=== PATIENT | male | born 1955 | race Caucasian/White ===

== ENCOUNTER → 2021-08-06 09:53 | Outpatient (CLI) | payer MEDICARE, SELFPAY ==
--- NOTE | ~2021-08-06 | US_ITS ---
EXAMINATION: US soft tissue head and neck DATE: 08/06/2021 10:13 INDICATION: Localized swelling, mass and lump, neck. TECHNIQUE: Multiple grayscale and Doppler ultrasound images of the neck were obtained. COMPARISON: None FINDINGS: There are normal lymph nodes in the neck bilaterally. IMPRESSION: 1. No abnormal neck mass or lymphadenopathy. Reviewed, dictated and finalized at location B.
== END ==
PROVIDERS: PCP Family Medicine; Visit Provider Family Medicine
DX: R22.1 Localized swelling, mass and lump, neck (principal); Z80.7 Family history of other malignant neoplasms of lymphoid, hematopoietic and related tissues
CPT/HCPCS: 76536

== ENCOUNTER 2024-02-02 10:11 | Outpatient (CLI) | payer MEDICARE, SELFPAY ==
--- NOTE | ~2024-02-02 | XR_ITS ---
3 VIEWS LUMBAR SPINE Ordering provider: Nito Mistry MD History: . M54.30 - Sciatica, unspecified side . Comparison: None. FINDINGS: VERTEBRAL BODIES: No visible fracture or subluxation. DISK SPACES: Severe narrowing of the disc L4-L5 and L5-S1. Multilevel facet joint disease. SOFT TISSUES: Atherosclerotic changes of the aorta. IMPRESSION: No acute osseous abnormality lumbar spine. Multilevel degenerative disc disease. Reviewed, dictated and finalized at location A. DESIGNER
== END 2024-02-02 10:12 | disposition home or self-care (01) ==
LOC: MICIMG 10:12
PROVIDERS: PCP Family Medicine; Visit Provider Family Medicine
DX: M51.369 Other intervertebral disc degeneration, lumbar region without mention of lumbar back pain or lower extremity pain (principal); M51.370 Other intervertebral disc degeneration, lumbosacral region with discogenic back pain only
CPT/HCPCS: 72110

== ENCOUNTER 2024-03-10 12:30 | Outpatient (RCR) | payer MEDICARE, SELFPAY ==
--- NOTE | 2024-02-26 16:04 | PTOPEVAL1 ---
Assessment and note entered by Lizette Dunbar, PT, DPT Evaluation Information Assessment Status Evaluation Diagnosis sciatic pain Subjective Information Pt reports a chronic history of piriformis/sciatic pain. He states he was tried to be really proactive when he felt the pain starting this time . He states he has been being treated with emergency care attendant as well. States the pain does not limit him but it is really uncomfortable. In the last couple of weeks has had some shooting pain across his low back. He is getting better from the worst part but is still having pain. He likes to life weights and ride his bike but has not for the last month d/t pain. Reports BLE numbness. Reported Pain Level Pain Score 1: Self Report Assessment PT Clinical Summary Pt presents to therapy today for his initial evaluation. He demonstrates decreased lumbar mobility and has reports of liz foot numbness consistent with L5 and S1 nerve involvement. He has a negative slump test bilaterally. In standing he demonstrates a slight anterior. Skilled therapy services are indicated to improve lumbar mobility and to decrease pain reports. Plan of Care Interventions Electrical Stimulation,Gait Training,Manual Therapy,Neuro Re-education,Patient/Caregiver Education,Therapeutic Activities,Therapeutic Exercise PT Services Indicated Yes Treatment Frequency and follow up if pain does not improve Duration These treatments will address the objective and functional deficits as defined above. The patient will be advanced safely and appropriately in order for the patient to progress towards his/her prior level of function. Additional exercises will be introduced and as well as a comprehensive home exercise program upon discharge, if needed, ?to ensure carryover of functional gains achieved in the clinic. This treatment plan has been reviewed and agreement upon by the patient.
== END 2024-05-26 23:59 | disposition home or self-care (01) ==
LOC: ANHGOSHPT 12:30
PROVIDERS: PCP Family Medicine; Visit Provider Family Medicine
DX: M54.30 Sciatica, unspecified side (principal); M51.369 Other intervertebral disc degeneration, lumbar region without mention of lumbar back pain or lower extremity pain
CPT/HCPCS: 97110; 97161; 97530

== ENCOUNTER 2024-06-03 12:30 | Outpatient (RCR) | payer MEDICARE, SELFPAY ==
--- NOTE | 2024-06-03 14:33 | PTOPPROG ---
Assessment and note entered by Lizette Dunbar, PT, DPT Evaluation Information Assessment Status Progress Diagnosis sciatic pain Subjective Information Pt was initially evaluated on 02/26/24 and did his HEP on his own. About 3 weeks he was put on prednisone for an infection and his back pain completely went away. After coming off the medication he states his pain was out of control. States he did 1 hour of walking, 45 mins of exercise, and 2+ hours of yard work. He states it is hard for him to stand up straight. Assessment PT Clinical Summary Pt presents to therapy today for his progress report and 2 month long participation in his HEP. He reports improvement in some symptoms with worsening of others. His pain seems to be mechanical in nature, with proper lifting mechanics he has little to know pain. His HEP was progressed again. Skilled therapy services are indicated to improve lumbar mobility and to decrease pain reports. Pt plans to continue with HEP for a month and will follow up if needed Plan of Care Interventions Electrical Stimulation,Gait Training,Manual Therapy,Neuro Re-education,Patient/Caregiver Education,Therapeutic Activities,Therapeutic Exercise PT Services Indicated Yes Treatment Frequency and follow up if pain does not improve Duration These treatments will address the objective and functional deficits as defined above. The patient will be advanced safely and appropriately in order for the patient to progress towards his/her prior level of function. Additional exercises will be introduced and as well as a comprehensive home exercise program upon discharge, if needed, ?to ensure carryover of functional gains achieved in the clinic. This treatment plan has been reviewed and agreement upon by the patient.
--- NOTE | 2024-11-05 13:43 | PTOPDC ---
Assessment and note entered by J Luis Bender, PT Evaluation Information Assessment Status Discharge - Pt Not Present Diagnosis sciatic pain Subjective Information Pt was initially evaluated on 02/26/24 and did his HEP on his own. About 3 weeks he was put on prednisone for an infection and his back pain completely went away. After coming off the medication he states his pain was out of control. States he did 1 hour of walking, 45 mins of exercise, and 2+ hours of yard work. He states it is hard for him to stand up straight. Assessment PT Clinical Summary Patient last present for therapy 06/03/24. Patient has note returned since. Will be formally discharged at this time. Plan of Care PT Services Indicated Yes
== END 2024-09-01 23:59 | disposition home or self-care (01) ==
LOC: ANHGOSHPT 12:30
PROVIDERS: PCP Family Medicine; Visit Provider Family Medicine
DX: M54.30 Sciatica, unspecified side (principal); M51.369 Other intervertebral disc degeneration, lumbar region without mention of lumbar back pain or lower extremity pain
CPT/HCPCS: 97110; 97530

== ENCOUNTER 2024-07-21 10:09 | Outpatient (CLI) | payer MEDICARE, SELFPAY ==
--- NOTE | ~2024-07-21 | MR_ITS ---
MRI of the lumbar spine Clinical History: Degenerative disc disease Technique: Axial T2-weighted images, and sagittal T1-weighted, T2-weighted, and T2 fat-sat images wer e acquired. Findings: There is no fracture or subluxation of the lumbar spine. Vertebral bodies maintain normal h eight and alignment. There are Modic type I signal changes about the L4-L5 disc space due to degenera tive disc disease. At L1-L2, there is no disc bulge or herniation. There is mild facet arthropathy. No central canal sandra nosis or neural foraminal narrowing. At L2-L3, there is degenerative disc narrowing. There is disc bulge and moderate facet arthropathy. T here is moderate spinal canal stenosis/thecal sac compression. There is mild right neural foraminal n arrowing. Left neural foramen preserved. At L3-L4, there is diffuse disc bulge with moderate facet arthropathy. There is severe spinal canal s tenosis/thecal sac compression. There is moderate left neural foraminal narrowing, and mild right columba ral foraminal narrowing. At L4-L5, there is severe degenerative disc narrowing. There is disc bulge, especially at the right p aracentral to right foraminal region with mild facet arthropathy. No central canal stenosis. There is moderate to advanced bilateral neural foraminal narrowing. At L5-S1, there is mild disc bulge and mild to moderate facet arthropathy. No central canal stenosis. Neural foramina are preserved. Paravertebral soft tissues are unremarkable. Impression: Severe degenerative spondylosis at L3-L4 and L2-L3. Moderate degenerative spondylosis at L4-L5. Reviewed, dictated and finalized at [facility]. Impression: Severe degenerative spondylosis at L3-L4 and L2-L3. Moderate degenerative spondylosis at L4-L5.
== END 2024-07-21 10:10 | disposition home or self-care (01) ==
LOC: MICIMG 10:10
PROVIDERS: PCP Family Medicine; Visit Provider Nurse Practitioner Family
DX: M51.369 Other intervertebral disc degeneration, lumbar region without mention of lumbar back pain or lower extremity pain (principal); M47.896 Other spondylosis, lumbar region
CPT/HCPCS: 72148

== ENCOUNTER 2024-08-03 15:02 | Outpatient (CLI) | payer MEDICARE, SELFPAY ==
--- NOTE | ~2024-08-03 | XR_ITS ---
XR sacroiliac joints min 3V Ordering provider: Coleen Aj MD History: . sacroilitis x 6-8 mos w/o injury . Comparison: None. FINDINGS: BONES: No acute fracture or dislocation. Degenerative changes of the lower lumbar spine. Mild bilateral hip osteoarthritic changes. JOINTS: The bilateral sacroiliac joint spaces appear well maintained. No bony fusion of the sacroilia c joints or bony erosions. SOFT TISSUES: Unremarkable. IMPRESSION: NO ACUTE OSSEOUS ABNORMALITY. NORMAL SACROILIAC JOINTS. Reviewed, dictated and finalized at location A.
== END 2024-08-03 15:03 | disposition home or self-care (01) ==
PROVIDERS: PCP Family Medicine; Visit Provider Physical Medicine & Rehabilitation Pain Medicine
DX: M46.1 Sacroiliitis, not elsewhere classified (principal)
CPT/HCPCS: 72202

== ENCOUNTER 2024-10-21 11:06 | Outpatient (CLI) | payer MEDICARE, SELFPAY ==
--- OUTSIDE RECORDS SUMMARY | 2024-10-21 11:09 | XMS_ITS | Clinical Summary ---
Author Organization [facility] Address [address] [place] [address] Care Team Providers Care Roll Shop Supervisor Name Role Phone Marilynn Yoo MD Primary Care Provider Vivianaa ble Source Comments [facility],non-owned Affiliates and Associated Physician Practices is amultiple site organization consisting of ambulatory clinics and hospital sitesin [place], [place], [place] and [place]. This disclosure is being madepursuant to the Care Everywhere program and may not contain all information available regarding this patient. Last updated 17.[employer] [facility] Medications * Be aware that medications may not be up to date on this document. Alwaysverify current medications with the patient. albuterol HFA (PROVENTIL;VENT DIOMEDES;PROAIR) 108 (90 Base) MCG/ACT inhaler Inhale 2 puffs by mouth every 6 hours as needed 08/20/2012 Active VENTOLIN HFA 108 (90 Base) MCG/ACT inhaler INL 2 PFS PO Q 6 H PRF SOB OR WHEEZING 01/11/2019 Active amLODIPine (NORVASC) 10 MG tablet TAKE 1 TABLET BY MOUTH ONCE DAILY 10/13/2018 Active amLODIPine (NORVASC) 5 MG tablet Take 5 mg by mouth once daily 03/04/2019 Active amLODIPine (NORVASC) 5 MG tablet 02/23/2019 Active dexamethasone sodium phosphate (DECADRON) 0.1 % ophthalmic solution INSTILL 1 DROP IN LEFT EYE TID STARTING AFTER SURGERY. UNTIL BOTTLE IS EMPTY 08/05/2018 Active ketoconazole (NIZORAL) 2 % cream APPLY BID TO FEET AND ANKLES FOR 1 MONTH 09/16/2018 Active pantoprazole EC (PROTONIX) 40 MG tablet 03/18/2019 Active Social History Tobacco Use Types Packs/Day Years Used Date Smoking Tobacco: Never Assessed Sex and Gender Information Value Date Recorded Sex Assigned at Not on file Legal Sex Male 4:48 AM INTERNATIONAL COORDINATOR Gender Identity Not on file Sexual Orientation Not on file Last Filed Vital Signs Vital Sign Reading Time Taken Comments Blood Pressure - - Pulse - - Temperature - - Respiratory Rate - - Oxygen Saturation - - Inhaled Oxygen Concentration - - Weight 78.9 kg (174 lb) 04/29/2019 11:03 AM INTERNATIONAL COORDINATOR Height 177.8 cm (5' 10) 04/29/2019 11:03 AM INTERNATIONAL COORDINATOR Body Mass Index 24.97 04/29/2019 11:03 AM INTERNATIONAL COORDINATOR Plan of Treatment Health Maintenance Due Date Last Done Comments COLOGUARD (AGES 45-75) - COL ON CA SCREENING 1953 COLON MONITORING 1953 COLONOSCOPY - COLON CA SCREENING 1953 CT COLONOGRAPHY - COLON CA SCREENING 1955 Colorectal Cancer Screening 1953 FIT - COLON CA SCREENING 1953 FLEX SIG - COLON CA SCREENING 1953 HEPATITIS C SCREENING 03/15/1971 DTAP/TDAP/TD VACCINES (1 - Tdap) 1972 PNEUMOCOCCAL VACCINE 50+ (1 of 1 - PCV) 2003 ZOSTER VACCINE (1 of 2) 2003 COVID-19 VACCINE ( - 2023-2 5 season) 2023 DEPRESSION SCREENING 02/25/2024 LIPID TESTING 04/20/2024 04/20/2019 INFLUENZA VACCINE (#1) 2024 9, 01/05/2018, 03/30/1999 Respiratory Syncytial Virus (RSV) Vaccine Pt: or over 60 yrs (1 - 1-dose 75+ series) 2028 HEPATITIS B VACCINE Aged Out No longe r eligible based on patient's age to complete this topic HIB VACCINE Aged Out No longer eligi ble based on patient's age to complete this topic HPV VACCINE Aged Out No longer eligi ble based on patient's age to complete this topic MENINGOCOCCAL (Group B) VACCINE SHARED DECISION-MAKING Aged Out No longer eligible based on patient's age to complete this topic MENINGOCOCCAL GROUPS A/C/Y/W VACCINE Aged Out No longer eligible b ased on patient's age to complete this topic Insurance HUMAN Care Teams Roll Shop Supervisor Relationship Specialty Start Date End Date Marilynn Yoo MD PCP - General Internal Medicine 04/29/19
--- OUTSIDE RECORDS SUMMARY | 2024-10-21 11:09 | XMS_ITS | Encounter Summary ---
Author Organization [employer] Address [address] [place] [address] Care Team Providers Care Product Ambassador Name Role Phone Mey Ivey MD Primary Care Provider [phone] Encounter Details Date Type Department Care Team (Latest Contact Info) Description 07/12/2008 Outpatient Historical [facility], [address] Mey Ivey MD [address] [place] [address] Carbuncle and Furuncle of Face Social History Tobacco Use Types Packs/Day Years Used Date Smoking Tobacco: Never Assessed Sex and Gender Information Value Date Recorded Sex Assigned at Not on file Legal Sex Male 4:55 AM JAZZ MUSICIAN Gender Identity Not on file Sexual Orientation Not on file documented as of this encounter Plan of Treatment Not on file documented as of this encounter Visit Diagnoses Diagnosis Carbuncle and furuncle of face documented in this encounter Care Teams Product Ambassador Relationship Specialty Start Date End Date Mey Ivey MD [address] [place] [address] PCP - General Internal Medicine 08/13/16 12/09/21 documented as of this encounter
--- OUTSIDE RECORDS SUMMARY | 2024-10-21 11:10 | XMS_ITS | Encounter Summary ---
Author Organization [facility] Address [address] [place] [address] Care Team Providers Care Dental Surgeon Name Role Phone Mey Ivey MD Primary Care Provider [phone] Encounter Details Date Type Department Care Team (Late st Contact Info) Description 04/03/[address] [facility] Primary Care - [address] [place] [address] Clarence Baptiste MD NO ADDRESS ON FILE Social History Tobacco Use Types Packs/Day Years Used Date Smoking Tobacco: Never Assessed Sex and Gender Information Value Date Recorded Sex Assigned at Not on file Legal Sex Male 4:55 AM TELEPHONE COIN BOX COLLECTOR Gender Identity Not on file Sexual Orientation Not on file documented as of this encounter Plan of Treatment Not on file documented as of this encounter Visit Diagnoses Not on filedocumented in this encounter Care Teams Dental Surgeon Relationship Specialty Start Date End Date Mey Ivey MD [address] [facility] [address] [place] [address] PCP - General Internal Medicine 08/13/16 12/09/21 documented as of this encounter
--- OUTSIDE RECORDS SUMMARY | 2024-10-21 11:10 | XMS_ITS | Encounter Summary ---
Author Organization [facility] Address [address] [place] [address] Care Team Providers Care Plant Assigner Name Role Phone Mey Ivey MD Primary Care Provider [phone] Encounter Details Date Type Department Care Team (Late st Contact Info) Description 11/08/2005 Outpatient Historical [facility] Primary Care - [facility] [address] [place] [address] [address] [place] [address] Taqueria Tripp MD [address] [facility] [address] [place] [address] Social History Tobacco Use Types Packs/Day Years Used Date Smoking Tobacco: Never Assessed Sex and Gender Information Value Date Recorded Sex Assigned at Not on file Legal Sex Male 4:55 AM CHAIN PULLER Gender Identity Not on file Sexual Orientation Not on file documented as of this encounter Plan of Treatment Not on file documented as of this encounter Visit Diagnoses Not on filedocumented in this encounter Care Teams Plant Assigner Relationship Specialty Start Date End Date Mey Ivey MD [address] [facility] [address] [place] [address] PCP - General Internal Medicine 08/13/16 12/09/21 documented as of this encounter
--- OUTSIDE RECORDS SUMMARY | 2024-10-21 11:10 | XMS_ITS | Encounter Summary ---
Author Organization [facility] Address [address] [place] [address] Care Team Providers Care Gas Engine Performance Engineer Name Role Phone Mey Ivey MD Primary Care Provider [phone] Encounter Details Date Type Department Care Team (Late st Contact Info) Description 12/24/2002 Outpatient Historical [facility] Primary Care - [facility] [address] [place] [address] [address] [place] [address] Taqueria Tripp MD [address] [facility] [address] [place] [address] Social History Tobacco Use Types Packs/Day Years Used Date Smoking Tobacco: Never Assessed Sex and Gender Information Value Date Recorded Sex Assigned at Not on file Legal Sex Male 4:55 AM MONOTYPE OPERATOR Gender Identity Not on file Sexual Orientation Not on file documented as of this encounter Plan of Treatment Not on file documented as of this encounter Visit Diagnoses Not on filedocumented in this encounter Care Teams Gas Engine Performance Engineer Relationship Specialty Start Date End Date Mey Ivey MD [address] [facility] [address] [place] [address] PCP - General Internal Medicine 08/13/16 12/09/21 documented as of this encounter
--- OUTSIDE RECORDS SUMMARY | 2024-10-21 11:10 | XMS_ITS | Encounter Summary ---
Author Organization [employer] Address [address] [place] [address] Care Team Providers Care Field Human Resources Manager Name Role Phone Mey Ivey MD Primary Care Provider [phone] Encounter Details Date Type Department Care Team (Latest Contact Info) Description 02/16/2003 Outpatient Historical [facility] Taqueria Tripp MD [address] [facility] [address] [place] [address] PALPITATIONS (Primary Dx) Social History Tobacco Use Types Packs/Day Years Used Date Smoking Tobacco: Never Assessed Sex and Gender Information Value Date Recorded Sex Assigned at Not on file Legal Sex Male 4:55 AM INDUSTRIAL ECONOMICS PROFESSOR Gender Identity Not on file Sexual Orientation Not on file documented as of this encounter Plan of Treatment Not on file documented as of this encounter Visit Diagnoses Diagnosis Palpitations- Primary documented in this encounter Care Teams Field Human Resources Manager Relationship Specialty Start Date End Date Mey Ivey MD [address] [facility] [address] [place] [address] PCP - General Internal Medicine 08/13/16 12/09/21 documented as of this encounter
--- OUTSIDE RECORDS SUMMARY | 2024-10-21 11:10 | XMS_ITS | Encounter Summary ---
Author Organization [employer] Address [address] [place] [address] Care Team Providers Care Insurance Sales Assistant Name Role Phone Mey Ivey MD Primary Care Provider [phone] Encounter Details Date Type Department Care Team (Late st Contact Info) Description 04/06/1999 Outpatient Historical [facility] Tank Lizama MD [address] [place] [address] [place] [id number] Stricture and stenosis of esophagus (Primary Dx) Social History Tobacco Use Types Packs/Day Years Used Date Smoking Tobacco: Never Assessed Sex and Gender Information Value Date Recorded Sex Assigned at Not on file Legal Sex Male 4:55 AM MEDIA JOB TITLES Gender Identity Not on file Sexual Orientation Not on file documented as of this encounter Plan of Treatment Not on file documented as of this encounter Visit Diagnoses Diagnosis Stricture and stenosis of esophagus- Primary documented in this encounter Care Teams Insurance Sales Assistant Relationship Specialty Start Date End Date Mey Ivey MD [address] [facility] [address] [place] [address] PCP - General Internal Medicine 08/13/16 12/09/21 documented as of this encounter
--- OUTSIDE RECORDS SUMMARY | 2024-10-21 11:10 | XMS_ITS | Encounter Summary ---
Author Organization [facility] Address [address] [place] [address] Care Team Providers Care Electrical And Radio Mock Up Mechanic Name Role Phone Mey Ivey MD Primary Care Provider [phone] Encounter Details Date Type Department Care Team (Late st Contact Info) Description 03/30/1999 Outpatient Historical [facility] Primary Care - [address] [place] [address] Clarence Baptiste MD NO ADDRESS ON FILE Social History Tobacco Use Types Packs/Day Years Used Date Smoking Tobacco: Never Assessed Sex and Gender Information Value Date Recorded Sex Assigned at Not on file Legal Sex Male 4:55 AM COMMISSARY AGENT Gender Identity Not on file Sexual Orientation Not on file documented as of this encounter Plan of Treatment Not on file documented as of this encounter Visit Diagnoses Not on filedocumented in this encounter Care Teams Electrical And Radio Mock Up Mechanic Relationship Specialty Start Date End Date Mey Ivey MD [address] [facility] [address] [place] [address] PCP - General Internal Medicine 08/13/16 12/09/21 documented as of this encounter
--- OUTSIDE RECORDS SUMMARY | 2024-10-21 11:10 | XMS_ITS | Encounter Summary ---
Author Organization [facility] Address [address] [place] [address] Care Team Providers Care Hyperbaric Tech Name Role Phone Mey Ivey MD Primary Care Provider [phone] Encounter Details Date Type Department Care Team (Late st Contact Info) Description 01/28/2006 Outpatient Historical [facility] Primary Care - [facility] [address] [place] [address] [address] [place] [address] Taqueria Tripp MD [address] [facility] [address] [place] [address] Social History Tobacco Use Types Packs/Day Years Used Date Smoking Tobacco: Never Assessed Sex and Gender Information Value Date Recorded Sex Assigned at Not on file Legal Sex Male 4:55 AM SUPERVISOR TELLERS Gender Identity Not on file Sexual Orientation Not on file documented as of this encounter Plan of Treatment Not on file documented as of this encounter Visit Diagnoses Not on filedocumented in this encounter Care Teams Hyperbaric Tech Relationship Specialty Start Date End Date Mey Ivey MD [address] [facility] [address] [place] [address] PCP - General Internal Medicine 08/13/16 12/09/21 documented as of this encounter
--- OUTSIDE RECORDS SUMMARY | 2024-10-21 11:10 | XMS_ITS | Encounter Summary ---
Author Organization [facility] Address [address] [place] [address] Care Team Providers Care Parts Inspector Name Role Phone Mey Ivey MD Primary Care Provider [phone] Encounter Details Date Type Department Care Team (Late st Contact Info) Description 01/28/[address] [facility] Primary Care - [facility] [address] [place] [address] [address] [place] [address] Taqueria Tripp MD [address] [facility] [address] [place] [address] Social History Tobacco Use Types Packs/Day Years Used Date Smoking Tobacco: Never Assessed Sex and Gender Information Value Date Recorded Sex Assigned at Not on file Legal Sex Male 4:55 AM CORRECTIONAL TREATMENT SPECIALIST Gender Identity Not on file Sexual Orientation Not on file documented as of this encounter Plan of Treatment Not on file documented as of this encounter Visit Diagnoses Not on filedocumented in this encounter Care Teams Parts Inspector Relationship Specialty Start Date End Date Mey Ivey MD [address] [place] [address] PCP - General Internal Medicine 08/13/16 12/09/21 documented as of this encounter
--- OUTSIDE RECORDS SUMMARY | 2024-10-21 11:10 | XMS_ITS | Encounter Summary ---
Author Organization [facility] Address [address] [place] [address] Care Team Providers Care Security Operations Manager Name Role Phone Mey Ivey MD Primary Care Provider [phone] Encounter Details Date Type Department Care Team (Late st Contact Info) Description 03/22/2003 Outpatient Historical [facility] Primary Care - [facility] [address] [place] [address] [address] [place] [address] Taqueria Tripp MD [address] [facility] [address] [place] [address] Social History Tobacco Use Types Packs/Day Years Used Date Smoking Tobacco: Never Assessed Sex and Gender Information Value Date Recorded Sex Assigned at Not on file Legal Sex Male 4:55 AM MIMEOGRAPHER Gender Identity Not on file Sexual Orientation Not on file documented as of this encounter Plan of Treatment Not on file documented as of this encounter Visit Diagnoses Not on filedocumented in this encounter Care Teams Security Operations Manager Relationship Specialty Start Date End Date Mey Ivey MD [address] [facility] [address] [place] [address] PCP - General Internal Medicine 08/13/16 12/09/21 documented as of this encounter
--- OUTSIDE RECORDS SUMMARY | 2024-10-21 11:10 | XMS_ITS | Encounter Summary ---
Author Organization [facility] Address [address] [place] [address] Care Team Providers Care Bending Frame Operator Name Role Phone Mey Ivey MD Primary Care Provider [phone] Encounter Details Date Type Department Care Team (Late st Contact Info) Description 03/26/2007 Orders Only [facility] Primary Care - [address] [place] [address] Mey Ivey MD [address] [facility] [address] [place] [address] Social History Tobacco Use Types Packs/Day Years Used Date Smoking Tobacco: Never Assessed Sex and Gender Information Value Date Recorded Sex Assigned at Not on file 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 MEDICATIONS: Medication list current. CHIEF COMPLAINT Patient complains of dizziness, sinus congestion. HISTORY: HISTORY: HISTORY OF PRESENT ILLNESS: UPPER RESPIRATORY: The upper respiratory symptoms began approximately 6 days ago. Symptoms include dizziness/lightheadedness, symptoms include sinus congestion. ROS: GENERAL: No chills, no fever, see HISTORY OF PRESENT ILLNESS. PHYSICAL EXAMINATION: EARS, NOSE, MOUTH AND THROAT: EARS: Tympanic membranes shiny without retraction. Canals unremarkable. Hearing grossly normal. NOSE (AND SINUS): TURBINATES SWOLLEN BILATERALLY, MAXILLARY SINUSES ARE TENDER BILATERALLY. ORAL: OROPHARYNX ERYTHEMATOUS. RESPIRATORY: Clear to auscultation and percussion. Normal respiratory effort. CARDIOVASCULAR: CARDIAC: Regular rhythm. No murmurs, rubs, or gallops. ASSESSMENT/PLAN: 386.11-BENIGN POSITIONAL VERTIGO MEDICATIONS: MECLIZINE HCL ORAL CAPSULE CONVENTIONAL 25 MG, 1 Four Times A Day, As Needed, 40 Dispensed, status:NEW PRESCRIPTION, 03/26/2007. 461.8-ACUTE SINUSITIS MEDICATIONS: ZITHROMAX Z-PRATIK ORAL TABLET 250 MG, DIRECTED, 1 Dispensed, status: CONTINUED, 03/26/2007. FLONASE NASAL SUSPENSION 50 MCG/ACT, 2 SPRAYS EACH NOSTRIL each day, 1 Dispensed, 11 Fills, status:CONTINUED, 03/26/2007. RETURN VISIT : Instructed to call if not improving. Electronically Signed by: Mey Ivey MD on , March 26, 2007 documented in this encounter Plan of Treatment Not on file documented as of this encounter Visit Diagnoses Not on filedocumented in this encounter Care Teams Bending Frame Operator Relationship Specialty Start Date End Date Mey Ivey MD [address] [facility] [address] [place] [address] PCP - General Internal Medicine 08/13/16 12/09/21 documented as of this encounter
--- OUTSIDE RECORDS SUMMARY | 2024-10-21 11:10 | XMS_ITS | Encounter Summary ---
Author Organization [facility] Address [address] [place] [address] Care Team Providers Care Fish Egg Packer Name Role Phone Mey Ivey MD Primary Care Provider [phone] Encounter Details Date Type Department Care Team (Late st Contact Info) Description 02/10/2003 Outpatient Historical [facility] Primary Care - [facility] [address] [place] [address] [address] [place] [address] Taqueria Tripp MD [address] [facility] [address] [place] [address] Social History Tobacco Use Types Packs/Day Years Used Date Smoking Tobacco: Never Assessed Sex and Gender Information Value Date Recorded Sex Assigned at Not on file 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
--- OUTSIDE RECORDS SUMMARY | 2024-10-21 11:10 | XMS_ITS | Encounter Summary ---
Author Organization [facility] Address [address] [place] [address] Care Team Providers Care Warp Doffer Name Role Phone Mey Ivey MD Primary Care Provider [phone] Encounter Details Date Type Department Care Team (Late st Contact Info) Description 05/16/2007 Outpatient Historical [facility] Primary Care - [address] [place] [address] Taqueria Tripp MD [address] [facility] [address] [place] [address] Routine General Medical Examination at a Health Care Facility Social History Tobacco Use Types Packs/Day Years Used Date Smoking Tobacco: Never Assessed Sex and Gender Information Value Date Recorded Sex Assigned at Not on file 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 Gender Identity Not on file Sexual Orientation Not on file documented as of this encounter Plan of Treatment Pending Results Name Type Priority Associated Diagnoses Date /Time TSH WITH REFLEX FT4 AND FT3 Lab Routine 05/16/2007 8:37 AM CDT documented as of this encounter Procedures Procedure Name Priority Date/Time Associated Diagnosis Comments TSH REFLEXIVE Routine 05/16/2007 8:37 AM CDT URINALYSIS WITH REFLEX CULTURE Routine 05/16/2007 8:37 AM CDT CBC WITH DIFFERENTIAL Routine 05/16/2007 8:37 AM CDT URINALYSIS W/REFLEX MICROSCOPIC Routine 05/16/2007 8:37 AM CDT PSA Routine 05/16/2007 8:37 AM CDT LIPID PANEL Routine 05/16/2007 8:37 AM CDT COMPREHENSIVE METABOLIC PANEL Routine 05/16/2007 8:37 AM CDT documented in this encounter Results * TSH WITH REFLEX FT4 (05/16/2007 8:37 AM CDT) Pathologist [facility] TSH 1.93 0.27 - 4.20 uU/mL [facility] Blood specimen (specimen) 05/16/2007 8:37 AM CDT 05/16/2007 4:59 PM CDT us Taqueria Tripp MD CHEMISTRY ORDERABLES Edited [facility] [address] [facility] [place] [address] * URINALYSIS (05/16/2007 8:37 AM CDT) Pathologist [facility] LEUKOCYTE ESTERASE UA Negative Negative [facility] SPECIFIC GRAVITY UA 1.018 1.001 - 1.035 [facility] GLUCOSE UA Negative Negative [facility] BLOOD UA Negative Negative [facility] COLOR UA Yellow [facility] NITRITE UA Negative Negative [facility] UROBILINOGEN UA <1 <=1 mg/dL [facility] PH UA 5.0 5.0 - 8.0 [facility] KETONES UA Negative Negative [facility] CLARITY UA Clear Clear [facility] BILIRUBIN UA Negative Negative [facility] PROTEIN UA Negative Negative [facility] 05/16/2007 8:37 AM CDT 05/16/2007 4:59 PM CDT Taqueria Tripp MD URINE ORDERABLES Final Result Performing Organization Address [facility]/ZIP Co de Phone Number [facility] [address] [place] [address] * PSA (05/16/2007 8:37 AM CDT) Pathologist [facility] PSA 2.2 0.0 - 4.0 ng/mL [facility] Comment:Performed on Electron Database E170 System Blood specimen (specimen) 05/16/2007 8:37 AM CDT 05/16/2007 4:59 PM CDT Taqueria Tripp MD CHEMISTRY ORDERABLES Edited Performing Organization Address City/[facility]/ZIP Co de Phone Number [facility] [address] [place] [address] * (ABNORMAL) CBC WITH DIFFERENTIAL (05/16/2007 8:37 AM CDT) Pathologist [facility] MCV 93.5 82.0 - 99.0 fL [facility] PLATELETS 272 140 - 350 K/uL [facility] HEMOGLOBIN 14.2 13.6 - 16.5 g/dL [facility] RDW 13.2 11.5 - 14.5 % [facility] WBC 5.3 4.0 - 9.8 K/uL [facility] MCH 30.7 27.2 - 32.6 pg [facility] MPV 10.0 9.3 - 12.4 fL [facility] HEMATOCRIT 43.3 40.0 - 48.0 % [facility] RDW-STDEV 44.4 37.1 - 48.7 fL [facility] RBC 4.63 4.50 - 5.40 M/uL [facility] MCHC 32.8 31.5 - 35.5 % [facility] MONOCYTES 10 3 - 13 % [facility] MONOCYTE ABSOLUTE 0.50 0.10 - 1.30 K/uL [facility] NEUTROPHILS 49 45 - 70 % [facility] NEUTROPHIL ABSOLUTE 2.60 1.90 - 7.00 K/uL [facility] EOSINOPHILS 8(H) 0 - 7 % [facility] EOSINOPHIL ABSOLUTE 0.40 0.00 - 0.70 K/uL [facility] LYMPHOCYTES 33 16 - 45 % [facility] LYMPHOCYTE ABSOLUTE 1.75 0.70 - 4.50 K/uL [facility] BASOPHILS 1 0 - 2 % [facility] BASOPHILS ABSOLUTE 0.03 0.00 - 0.20 K/uL [facility] Blood specimen (specimen) 05/16/2007 8:37 AM CDT 05/16/2007 4:59 PM CDT us Taqueria Tripp MD HEMATOLOGY ORDERABLES Edited INTERFACE SYSTEM Refer to clinic/hospital department [facility] [address] [facility] [address] [place] [address] * URINALYSIS WITH REFLEX CULTURE (05/16/2007 8:37 AM CDT) URINE CULTURE ORDER Not indicated [facility] Comment: Criteria for a reflex culture include one or more of the following: Abnormal nitrite, leukocyte esterase, WBCs or RBCs. Lack of qualifying criteria does not exclude the possiblity of a urinary tract infection. Dilute urine, drug interference, etc. may decrease the sensitivity of the criteria analytes. Urine, clean catch 05/16/2007 8:37 AM CDT 05/16/2007 4:59 PM CDT us Taqueria Tripp MD URINE ORDERABLES Final Result [facility] [address] [place] [address] * COMPREHENSIVE METABOLIC PANEL (05/16/2007 8:37 AM CDT) ALKALINE PHOSPHATASE 55 40 - 129 U/L [facility] BILIRUBIN TOTAL 0.6 0.2 - 1.0 mg/dL [facility] CO2 26 22 - 30 mmol/L [facility] TOTAL PROTEIN 7.4 6.3 - 8.6 g/dL [facility] POTASSIUM 4.6 3.5 - 4.9 mmol/L [facility] GLUCOSE 94 65 - 99 mg/dL [facility] AST 30 12 - 38 U/L [facility] BUN 17 6 - 20 mg/dL [facility] CALCIUM 9.3 8.4 - 10.2 mg/dL [facility] CHLORIDE 103 96 - 108 mmol/L [facility] ALBUMIN 4.3 3.4 - 4.8 g/dL [facility] CREATININE 0.97 0.67 - 1.17 mg/dL [facility] SODIUM 137 135 - 145 mmol/L [facility] ALT 30 0 - 41 U/L [facility] GFR, >60 >=60 mL/min/1.7 sq meter [facility] GFR >60 >=60 mL/min/1.7 sq meter [facility] Comment: Estimated GFR rate interpretative information for both Americans and non- Americans is available on the [facility] Intranet at: [email or web address].[facility] Select: Lab Policies and Procedures Select: Reference Ranges - GFR Blood specimen (specimen) 05/16/2007 8:37 AM CDT 05/16/2007 4:59 PM CDT Result [facility] Taqueria Tripp MD CHEMISTRY ORDERABLES Edited Performing Organization Address City/[facility]/ZIP Co de Phone Number [facility] [address] [place] [address] * (ABNORMAL) LIPID PANEL (05/16/2007 8:37 AM CDT) CHOL/HDL RATIO 3.7 2.0 - 5.0 [facility] HDL 52 40 - 59 mg/dL [facility] CHOLESTEROL 190 100 - 199 mg/dL [facility] TRIGLYCERIDE 52 10 - 149 mg/dL [facility] LDL CALCULATED 128(H) <=99 mg/dL [facility] LIPID PANEL COMMENT See Below [facility] Comment: The adult ATP and pediatric NCEP classifications for lipids are available on the [facility] Intranet at: [email or web address].nsf Select: Lab Policies and Procedures,Current Select: Lipid Panel Interpretation Blood specimen (specimen) 05/16/2007 8:37 AM CDT 05/16/2007 4:59 PM CDT Taqueria Tripp MD CHEMISTRY ORDERABLES Edited Performing Organization Address City/[facility]/ZIP Co de Phone Number [facility] [address] [place] [address] documented in this encounter Visit Diagnoses Diagnosis Routine general medical examination at a health care facility documented in this encounter Care Teams Warp Doffer Relationship Specialty Start Date End Date Mey Ivey MD [address] [place] [address] PCP - General Internal Medicine 08/13/16 12/09/21 documented as of this encounter
--- OUTSIDE RECORDS SUMMARY | 2024-10-21 11:10 | XMS_ITS | Encounter Summary ---
Author Organization [facility] Address [address] [place] [address] Care Team Providers Care Labelling Machine Operator Name Role Phone Mey Ivey MD Primary Care Provider [phone] Encounter Details Date Type Department Care Team (Late st Contact Info) Description 01/27/2006 Orders Only [facility] Primary Care - [address] [place] [address] Taqueria Tripp MD [address] [facility] [address] [place] [address] Social History Tobacco Use Types Packs/Day Years Used Date Smoking Tobacco: Never Assessed Sex and Gender Information Value Date Recorded Sex Assigned at Not on file 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 LAST VISIT: PCP: holly. ALTERNATIVE PHONE NUMBER: [phone] WHO CALLED: Patient called. CURRENT ALLERGY LIST: NO KNOWN ALLERGIES PHARMACY NUMBER: [phone] PROBLEMS: CONGESTION: Patient complains of chest congestion, complains of head congestion. COUGH:Patient complains of cough. clear production EARACHE: Patient complains of earache. lt ear FEVER: . hot and cold flashes HEADACHE: . SORE THROAT: Patient complains of sore throat. The sore throat began approximately 1 week ago. swollen glands, lt side SECTION 1: REQUESTED ACTION morris 01/27/06 at 09:16 am: MEDICATION REQUEST: Patient wants medication or an appointment. stacia DOCTOR`S RESPONSE: rigo 01/27/06 at 09:24 am I can see any open spot this week, but call out med to start on either way MEDICATIONS: Call in to Pharmacy ZITHROMAX Z-PRATIK ORAL TABLET 250 MG, DIRECTED, 1 Dispensed, status: NEW PRESCRIPTION, 01/27/2006. FINAL ACTION: mychal 01/27/06 at 09:53 am Spoke with patient 01/27/06 at 09:53 am. Booked appointment: 01/28 8:30a...........travis Electronically Signed by: Travis Melgoza on Friday, January 27, 2006 documented in this encounter Plan of Treatment Not on file documented as of this encounter Visit Diagnoses Not on filedocumented in this encounter Care Teams Labelling Machine Operator Relationship Specialty Start Date End Date Mey Ivey MD [address] [facility] [address] [place] [id number] PCP - General Internal Medicine 08/13/16 12/09/21 documented as of this encounter
--- OUTSIDE RECORDS SUMMARY | 2024-10-21 11:10 | XMS_ITS | Encounter Summary ---
Author Organization [facility] Address [address] [place] [address] Care Team Providers Care Lay Out Technician Name Role Phone Mey Ivey MD Primary Care Provider [phone] Encounter Details Date Type Department Care Team (Late st Contact Info) Description 12/24/2002 Outpatient Historical [facility] Primary Care - [facility] [address] [place] [address] [address] [place] [address] Taqueria Tripp MD [address] [facility] [address] [place] [address] Social History Tobacco Use Types Packs/Day Years Used Date Smoking Tobacco: Never Assessed Sex and Gender Information Value Date Recorded Sex Assigned at Not on file 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
--- OUTSIDE RECORDS SUMMARY | 2024-10-21 11:10 | XMS_ITS | Encounter Summary ---
Author Organization [facility] Address [address] [place] [address] Care Team Providers Care Agricultural Produce Commission Agent Name Role Phone Mey Ivey MD Primary Care Provider [phone] Encounter Details Date Type Department Care Team (Late st Contact Info) Description 05/12/2002 Outpatient Historical [facility] Primary Care - [facility] [address] [place] [address] [address] [place] [address] Taqueria Tripp MD [address] [facility] [address] [place] [address] Social History Tobacco Use Types Packs/Day Years Used Date Smoking Tobacco: Never Assessed Sex and Gender Information Value Date Recorded Sex Assigned at Not on file 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
--- OUTSIDE RECORDS SUMMARY | 2024-10-21 11:10 | XMS_ITS | Encounter Summary ---
Author Organization [facility] Address [address] [place] [address] Care Team Providers Care Restaurant Culinary Manager Name Role Phone Mey Ivey MD Primary Care Provider [phone] Encounter Details Date Type Department Care Team (Late st Contact Info) Description 12/16/2006 Orders Only [facility] Primary Care - [facility] [address] [place] [address] [address] [place] [address] Taqueria Tripp MD [address] [facility] [address] [place] [address] Social History Tobacco Use Types Packs/Day Years Used Date Smoking Tobacco: Never Assessed Sex and Gender Information Value Date Recorded Sex Assigned at Not on file 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
--- OUTSIDE RECORDS SUMMARY | 2024-10-21 11:10 | XMS_ITS | Clinical Summary ---
Author Organization [facility] Address [address] [place] [address] Care Team Providers Care Absorption And Adsorption Engineer Name Role Phone Unavailable Primary Care Provider Unavailabl e Allergies Active Allergy Reactions Criticality Noted Date Comments No Known Allergies 08/13/2004 Medications albuterol (PROVENTIL,VENTOL IN) 90 mcg/actuation Inhalation Aero Take 2 Puffs by inhalation 4 times daily as needed for Shortness of Breath. 17 Gram 2 3 Active albuterol HFA 90 mcg inhalerIndication s:Mild intermittent asthma without complication Take 2 Puffs by inhalation every 6 hours as needed for Shortness of Breath or Wheezing. 8.5 Gram 11 9 Active levocetirizine (Xyzal) 5 mg tablet Take 1 Tablet (5 mg) by mouth late in the day. 90 Tablet 1 1 Active fluticasone propionate (FLONASE) 50 mcg/spray [place], Suspension nasal inhalerIndication s:Allergic rhinitis due to animal hair and dander Administer 2 Sprays in each nostril daily. 48 Gram 1 1 Active azelastine (ASTELIN) 137 mcg/actuation nasal spray Administer 2 Sprays in each nostril 2 times daily. 1 mL 11 1 Active amLODIPine (NORVASC) 10 mg tabletIndications :Essential hypertension Take 1 Tablet (10 mg) by mouth daily. 1 Tablet 2 Active Active Problems Problem Noted Date Diagnosed Date Nondisplaced fracture of hea d of left radius, initial encounter for closed fracture 04/28/2019 Hiatal hernia with GERD 04/21/2019 Mild intermittent asthma without complication Mixed hyperlipidemia 04/20/2018 Family history of prostate cancer 07/30/2016 History of colon polyps 05/24/2015 Overview (05/24/2015): Colonoscopy 04/2015 (sunil) - adenomatous polyp, repeat in 5 years (2020). Allergic rhinitis 08/13/2004 Essential hypertension Elevated PSA Resolved Problems Problem Noted Date Diagnosed Date Resolved Date Blunt head injury, sequela 07/03/2018 1 Post-traumatic headache 07/03/201811/25 Tinnitus of both ears 04/14/20172018 Ocular migraine 02/15/2010 10/23/2011 S/P colonoscopy 01/24/2009 10/23/2011 Overview (01/24/2009): Normal 12/20/2005 repeat 10 years Routine general medical exam ination at a health care facility 05/15/2007 02/15/2010 Undiagnosed cardiac murmurs 05/15/2007 10/23/2011 Overview (01/24/2009): Mild mitral regurgitation on echo 05/2007 Benign paroxysmal positional vertigo 03/26/2007 02/15/2010 Other acute sinusitis 03/26/20072008 Other acute reactions to stress 04/25/2006 02/15/2010 Acute serous otitis media 04/25/2006 Depressive disorder, not elsewhere classified 04/26/19 07 10/23/2011 Acute pharyngitis 01/28/2006 01/24/2009 Special screening for malign ant neoplasms, colon 08/26/2005 01/24/2009 Special screening for malign ant neoplasm of prostate 08/26/2005 10/23/2011 BENIGN HYPERTENSION 08/13/2004 10/23/19 12 FAMILY HX-ISCHEM HEART DIS 08/13/2004 0 10/23/2011 Chest pressure 04/14/2017 Gastroesophageal reflux dise ase without esophagitis 04/20/2018 Diaphoresis 04/14/2017 Chest pain 03/11/2019 Viral upper respiratory infection 03/11/2019 Immunizations Immunization Administration Dates Next Due (ADACEL/BOOSTRIX)(10 YR UP) TDAP VACCINE, 0.5ML, IM 04/14/2017,02/15/2010 (PFIZER)(12 YR UP) COVID-19 VACCINE - EMERGENCY USE AUTHORIZATION, MRNA, [id number](PF) 30 MCG/0.3 ML IM SUSP 05/25/2020,04/24/2020 (PNEUMOVAX 23)(50 YRS UP) PN EUMOCOCCAL POLYSACCHARIDE (PPV23) 0.5 ML, IM 04/21/2019 (PREVNAR 13)(6 WKS UP) PNEUM OCOCCAL CONJUGATE (PCV13) 0.5 ML, IM 04/20/2018 (SHINGRIX)(50 YRS UP) ZOSTER VACCINE RECOMBINANT, 0.5 ML, IM 10/16/2018,08/05/2018 INFLUENZA VACCINE QUADRIVALENT 3 YR UP PF IM INFLUENZA VACCINE QUADRIVALENT 6 MOS UP PF IM INFLUENZA VACCINE QUADRIVALENT ADJ 65 YR UP PF I M 12/13/2019 Influenza Vaccine High Dose 65+ Yrs IM 1 Influenza Vaccine Split 3+ Yrs IM 03/30/1999 Family History Medical History Relation Name Comments Other Brother non Hodgkins ly mphoma Healthy Daughter x2 Heart Disease Father Seizures Father Heart Attack Maternal Grandfather Heart Attack Maternal Grandmother Cancer Mother kidney Hypertension Mother Other Sister non Hodgkins ly mphoma Colon Cancer Neg Hx Relation Name Status Comments Brother Daughter Alive Father Maternal Grandfather Maternal Grandmother Mother Paternal Grandfather Paternal Grandmother Sister Alive Social History Tobacco Use Types Packs/Day Years Used Date Smoking Tobacco: Never Smokeless Tobacco: Never Tobacco Cessation:Counseling Given: Yes Alcohol Use Standard Drinks/Week Comments Yes 0 (1 standard drink = 0.6 oz pur e alcohol) rarely Feeling Safe Answer Date Recorded Within the last year, have y ou been afraid of your partner or ex-partner? No 07/02/2020 Within the last year, have y ou been humiliated or emotionally abused in other ways by your partner or ex-partner? No Within the last year, have y ou been kicked, hit, slapped, or otherwise physically hurt by your partner or ex-partner? No 07/02/2020 Within the last year, have y ou been raped or forced to have any kind of sexual activity by your partner or ex-partner? No 07/02/2020 Social Connections Answer Date Recorded In a typical week, how many times do you talk on the telephone with family, friends, or neighbors? More than three times a week 06/28/2020 How often do you get togethe r with friends or relatives? More than three times a week 06/28/2020 Attends Scientologist Services Not on file 06/28 Active Member of Clubs or Organizations Not on f ile 06/28/2020 Attends Club or Organization Meetings Not on fatoumata e 06/28/2020 Marital Status Not on file 06/28/2020 Food Insecurity Answer Date Recorded In the past 12 months, have you worried that your food would run out before you had money to buy more? Never true 2020 Ran Out of Food in the Last Year Not on file 07/02/2020 Transportation Needs Answer Date Record ed In the past 12 months, has l ack of transportation kept you from medical appointments or from getting medications? No 07/02/2020 Lack of Transportation (Non-Medical) Not on file 07/02/2020 Housing Stability Answer Date Recorded Unable to Pay for Housing in the Last Year Not o n file 07/02/2020 Number of Times Moved in the Last Year Not on fi le 07/02/2020 At any time in the [facility], were you homeless or living in a intermediate (including now)? 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 Gender Identity Not on file Sexual Orientation Not on file Occupation Industry Job Start Date Job End Date Not on file Not on file Not on file Not on file Last Filed Vital Signs Vital Sign Reading Time Taken Comments Blood Pressure 111/80 08/10/2020 10:23 AM CDT Pulse 79 08/10/2020 10:23 AM CDT Temperature 36.8 C (98.2 F) 08/10/2020 10:14 AM CDT Respiratory Rate 18 08/10/2020 10:23 AM CDT Oxygen Saturation 96% 08/10/2020 10:23 AM CDT Inhaled Oxygen Concentration - - Weight 79.7 kg (175 lb 9.6 oz) 08/10/2020 9:14 A M CDT Height 177.8 cm (5' 10) 08/10/2020 9:14 AM CDT Body Mass Index 25.2 08/10/2020 9:14 AM CDT Plan of Treatment Health Maintenance Due Date Last Done Comments FIT-DNA Q 3 years 1998 FIT/FOBT Q 1 year 1998 Flex Sig/CT Colonography Q 5 years 1998 COVID-19 Vaccine ( - 2023-2 5 season) 2023 05/25/2020, 04/24/2020 INFLUENZA VACCINE (#1) 2024 , 12/13/2019, 12/09/2018, Additional history exists DTAP/TDAP/TD VACCINES (3 - T d or Tdap) 04/14/2027 04/14/2017, 02/15/2010 COLORECTAL SCREENING 08/11/2027 08/10/2020, 08/10/2020, 05/18/2015, Additional history exists Colorectal Cancer Screening 08/11/2027 RSV VACCINE (60+ or ) (1 - 1-dose 75+ series) 2028 ZOSTER VACCINE Completed 10/16/2018, 08/05/2018 PNEUMOCOCCAL VACCINE 50+ YEARS Completed 04/21/2019 , 04/20/2018 Procedures Procedure Name Priority Date/Time Associated Diagnosis Comments COLONOSCOPY REPORT 08/10/2020 10 :16 AM CDT from Last 3 Months or Most Recently Relevant to Health Maintenance Results * COLONOSCOPY REPORT (08/10/2020 10:16 AM CDT) Narrative Procedure Note Alex Galeano MD - 08/10/2020 10:15 AM CDT [facility] Endoscopy Patient Name: Hong Jesus Procedure Date: 08/10/2020 Date of : 1955 Admit Type: Outpatient Attending MD: Alex Galeano MD Procedure: Colonoscopy Indications: Surveillance: Personal history of adenomatous polyps on last colonoscopy > 5 years ago Providers: Alex Galeano MD Referring MD: Mey Ivey MD Medicines: Propofol per Anesthesia Complications: No immediate complications. Procedure: Informed consent was obtained for the procedure, including moderate sedation after risks were discussed. Based on the pre-procedure assessment, including review of the patient's medical history, medications, allergies, and review of systems, the patient was deemed to be an appropriate candidate for sedation. A timeout was performed. Continuous ECG monitoring, pulse oximetry, blood pressure monitoring, and direct observation were performed. The Colonoscope was introduced through the anus and advanced to the cecum, identified by appendiceal orifice and ileocecal valve. The colonoscopy was performed without difficulty. The patient tolerated the procedure well. The quality of the bowel preparation was good. Estimated Blood Loss: Estimated blood loss: none. Findings: The colonic mucosa was without erythema or ulceration. There were no appreciable diverticulum. The colon prep was good excellent. There were no appreciable polypoid lesions or areas of mucosal change to suggest adenomatous tissue. Retroflexion showed internal hemorrhoids. Impression: Normal colonoscopy to the cecum without polyps in the setting of good excellent prep. Internal hemorrhoids. Recommendation: For colon polyp surveillance recommend follow-up colonoscopy in 5 to 7 years Alex Galeano MD 08/10/2020 10:15:16 AM This report has been signed electronically. Number of Addenda: [phone] ; [place] [address] Alex Galeano MD GI PROCEDURE ORDERABLES Mabel l Result from Last 3 Months or Most Recently Relevant to Health Maintenance Insurance [facility] Advance Directives For more information, please contact: [phone] * Full Code (Latest Code Status on File) Date Activated Date Inactivated Comments 08/10/2020 9:17 AM 08/10/2020 12:44 PM * Full Code Date Activated Date Inactivated Comments 05/18/2015 2:16 PM 05/18/2015 7:31 PM * Full Code Date Activated Date Inactivated Comments 05/11/2015 4:47 PM 05/12/2015 6:52 PM
--- OUTSIDE RECORDS SUMMARY | 2024-10-21 11:10 | XMS_ITS | Encounter Summary ---
Author Organization [facility] Address [address] [place] [address] Care Team Providers Care Pool Hand Name Role Phone Mey Ivey MD Primary Care Provider [phone] Encounter Details Date Type Department Care Team (Late st Contact Info) Description 11/08/2005 Outpatient Historical [facility] Primary Care - [facility] [address] [place] [address] [address] [place] [address] Taqueria Tripp MD [address] [facility] [address] [place] [address] Social History Tobacco Use Types Packs/Day Years Used Date Smoking Tobacco: Never Assessed Sex and Gender Information Value Date Recorded Sex Assigned at Not on file 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
--- OUTSIDE RECORDS SUMMARY | 2024-10-21 11:10 | XMS_ITS | Encounter Summary ---
Author Organization [facility] Address [address] [place] [address] Care Team Providers Care Spring Tester Name Role Phone Mey Ivey MD Primary Care Provider [phone] Encounter Details Date Type Department Care Team (Late st Contact Info) Description 05/28/2007 Outpatient [facility] 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 [address] [email or web address] Patient: Hong Jesus Study ID: SANTOS ADULT ECHO Gender: M : 1955 Age: 52 years Race: 1 Room: Bed: Height: 70 in ( 178 cm ) Study Date: May 28, 2007 Patient status: Outpatient Weight: 179.74 lb ( 81.7 kg ) Access. #: [id number] POC: Ordering: Kesha Attending MD: Kesha Admitting MD: Kesha Study Conclusions: SUMMARY: - Overall left ventricular systolic function was normal. Left ventricular ejection fraction was estimated to be 60 %. Left ventricular diastolic function parameters were normal. - There was mild mitral valvular regurgitation. - Right ventricular size was normal. Right ventricular systolic function was normal. - There was trivial tricuspid valvular regurgitation. Cardiac anatomy: LEFT VENTRICLE: Left ventricular size was normal. Overall left ventricular systolic function was normal. Left ventricular ejection fraction was estimated to be 60 %. Doppler interpretation(s): Left ventricular diastolic function parameters were normal. AORTIC VALVE: The aortic valve was trileaflet. Aortic valve thickness was normal. Doppler interpretation(s): There was no evidence for aortic valve stenosis. There was no significant aortic valvular regurgitation. AORTA: The aortic root was normal in size. MITRAL VALVE: Redundant anterior mitral valve leaflet, not meeting criteria for mitral valve prolapse. Doppler interpretation(s): There was mild mitral valvular regurgitation. LEFT ATRIUM: Left atrial size was normal. RIGHT VENTRICLE: Right ventricular size was normal. Right ventricular systolic function was normal. TRICUSPID VALVE: Doppler interpretation(s): There was trivial tricuspid valvular regurgitation. PULMONARY ARTERY: Doppler interpretation(s): The estimated pulmonary artery systolic pressure was within the normal range. RIGHT ATRIUM: Right atrial size was normal. The Eustachian valve appeared prominent. PERICARDIUM: There was no pericardial effusion. Measurement tables: 2D measurements LEFT VENTRICLE NORMAL LVOT area 3.4 cm^2 -- M-mode measurements LEFT VENTRICLE NORMAL LVID ed 44 mm -- LVID es 29 mm -- IVS ed 11 mm -- LVPWT ed 11 mm -- AORTA NORMAL AoD (root) 30 mm -- LEFT ATRIUM NORMAL LAD 30 mm -- Doppler measurements LVOT, AV, AORTA NORMAL LVOT diameter 2.08 cm -- LVOT max velocity 94 cm/sec -- LVOT VTI 20 cm -- Stroke volume (LVOT) 68 ml -- Mean AV velocity 46.4 cm/sec -- Peak AV velocity 120 cm/sec -- AV VTI 24 cm -- Mean AV gradient 2.2 mmHg -- Peak AV gradient 6 mmHg -- AV area (VTI) 2.79 cm^2 -- AV area (Vmax) 2.65 cm^2 -- MITRAL VALVE NORMAL Peak E velocity 54 cm/sec -- Peak A velocity 48 cm/sec -- MV peak E/A 1.13 -- MV deceleration time 237 msec -- Isovolumic relax time 104 msec -- MV mean gradient 0.2 mmHg -- Peak gradient 1 mmHg -- Pressure half-time 67 msec -- Area (PHT) 3.27 cm^2 -- Area (continuity) 4.63 cm^2 -- Transmitral VTI 14.7 cm -- Mitral regurgitation by PISA technique Max MR velocity 513 cm/sec -- MR VTI 164 cm -- RIGHT VENTRICLE NORMAL Tricuspid regurgitant velocity 212 cm/sec -- Estimated RV systolic pressure 28 mmHg -- RVOT, PV, PA NORMAL PV peak velocity 82 cm/sec -- PV peak gradient 3 mmHg -- Prepared and Electronically Authenticated Ender Nguyễn MD Confirmed May 28, 2007 15:16:20 Procedure Note Provider, Historical - 05/28/[address] [email or web address]: [email or web address] Echocardiogram Patient: Hong Jesus Study ID: SANTOS ADULT ECHO Gender: M : 1955 Age: 52 years Race: 1 Room: Bed: Height: 70 in ( 178 cm ) Study Date: May 28, 2007 Patient status: Outpatient Weight: 179.74 lb ( 81.7 kg ) Access. #: [id number] POC: Ordering: Kesha Attending MD: Kesha Admitting MD: Kesha Study Conclusions: SUMMARY: - Overall left ventricular systolic function was normal. Leftventricular ejection fraction was estimated to be 60 %. Left ventricular diastolic function parameters were normal. - There was mild mitral valvular regurgitation. - Right ventricular size was normal. Right ventricular systolicfunction was normal. - There was trivial tricuspid valvular regurgitation. Cardiac anatomy: LEFT VENTRICLE: Left ventricular size was normal. Overall left ventricular systolic function was normal. Left ventricular ejection fraction was estimated qing 60 %. Doppler interpretation(s): Left ventricular diastolic function parameters were normal. AORTIC VALVE: The aortic valve was trileaflet. Aortic valve thickness was normal.Doppler interpretation(s): There was no evidence for aortic valve stenosis.There was no significant aortic valvular regurgitation. AORTA: The aortic root was normal in size. MITRAL VALVE: Redundant anterior mitral valve leaflet, not meeting criteria for mitral valve prolapse. Doppler interpretation(s): There was mild mitralvalvular regurgitation. LEFT ATRIUM: Left atrial size was normal. RIGHT VENTRICLE: Right ventricular size was normal. Right ventricular systolic functionwas normal. TRICUSPID VALVE: Doppler interpretation(s): There was trivial tricuspid valvular regurgitation. PULMONARY ARTERY: Doppler interpretation(s): The estimated pulmonary artery systolicpressure was within the normal range. RIGHT ATRIUM: Right atrial size was normal. The Eustachian valve appeared prominent. PERICARDIUM: There was no pericardial effusion. Measurement tables: 2D measurements LEFT VENTRICLE NORMAL LVOT area 3.4 cm^2 -- M-mode measurements LEFT VENTRICLE NORMAL LVID ed 44 mm -- LVID es 29 mm -- IVS ed 11 mm -- LVPWT ed 11 mm -- AORTA NORMAL AoD (root) 30 mm -- LEFT ATRIUM NORMAL LAD 30 mm -- Doppler measurements LVOT, AV, AORTA NORMAL LVOT diameter 2.08 cm -- LVOT max velocity 94 cm/sec -- LVOT VTI 20 cm -- Stroke volume (LVOT) 68 ml -- Mean AV velocity 46.4 cm/sec -- Peak AV velocity 120 cm/sec -- AV VTI 24 cm -- Mean AV gradient 2.2 mmHg -- Peak AV gradient 6 mmHg -- AV area (VTI) 2.79 cm^2 -- AV area (Vmax) 2.65 cm^2 -- MITRAL VALVE NORMAL Peak E velocity 54 cm/sec -- Peak A velocity 48 cm/sec -- MV peak E/A 1.13 -- MV deceleration time 237 msec -- Isovolumic relax time 104 msec -- MV mean gradient 0.2 mmHg -- Peak gradient 1 mmHg -- Pressure half-time 67 msec -- Area (PHT) 3.27 cm^2 -- Area (continuity) 4.63 cm^2 -- Transmitral VTI 14.7 cm -- Mitral regurgitation by PISA technique Max MR velocity 513 cm/sec -- MR VTI 164 cm -- RIGHT VENTRICLE NORMAL Tricuspid regurgitant velocity 212 cm/sec -- Estimated RV systolic pressure 28 mmHg -- RVOT, PV, PA NORMAL PV peak velocity 82 cm/sec -- PV peak gradient 3 mmHg -- Prepared and Electronically Authenticated Ender Nguyễn MD Confirmed May 28, 2007 15:16:20 us Taqueria Tripp MD US ORDERABLES Final Result Performing Organization Address City/State/[facility] Co de Phone Number INTERFACE SYSTEM Refer to clinic/hospital department documented in this encounter Visit Diagnoses Diagnosis Undiagnosed cardiac murmurs documented in this encounter Care Teams Spring Tester Relationship Specialty Start Date End Date Mey Ivey MD [address] [facility] [address] [place] [address] PCP - General Internal Medicine 08/13/16 12/09/21 documented as of this encounter
--- OUTSIDE RECORDS SUMMARY | 2024-10-21 11:10 | XMS_ITS | Encounter Summary ---
Author Organization [facility] Address [address] [place] [address] Care Team Providers Care Director Business Systems Name Role Phone Mey Ivey MD Primary Care Provider [phone] Encounter Details Date Type Department Care Team (Late st Contact Info) Description 06/29/2007 Orders Only [facility] Primary Care - [facility] [address] [place] [address] [address] [place] [address] Taqueria Tripp MD [address] [facility] [address] [place] [address] Social History Tobacco Use Types Packs/Day Years Used Date Smoking Tobacco: Never Assessed Sex and Gender Information Value Date Recorded Sex Assigned at Not on file 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
--- OUTSIDE RECORDS SUMMARY | 2024-10-21 11:10 | XMS_ITS | Encounter Summary ---
Author Organization [facility] Address [address] [place] [address] Care Team Providers Care Accounting Lecturer Name Role Phone Mey Ivey MD Primary Care Provider [phone] Encounter Details Date Type Department Care Team (Late st Contact Info) Description 02/23/2004 Outpatient Historical [facility] Primary Care - [facility] [address] [place] [address] [address] [place] [address] Taqueria Tripp MD [address] [facility] [address] [place] [address] Social History Tobacco Use Types Packs/Day Years Used Date Smoking Tobacco: Never Assessed Sex and Gender Information Value Date Recorded Sex Assigned at Not on file 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
--- OUTSIDE RECORDS SUMMARY | 2024-10-21 11:10 | XMS_ITS | Encounter Summary ---
Author Organization [facility] Address [address] [place] [address] Care Team Providers Care Core Driller Helper Name Role Phone Mey Ivey MD Primary Care Provider [phone] Encounter Details Date Type Department Care Team (Late st Contact Info) Description 04/25/2006 Outpatient Historical [facility] Primary Care - [address] [place] [address] Taqueria Tripp MD [address] [facility] [address] [place] [address] Social History Tobacco Use Types Packs/Day Years Used Date Smoking Tobacco: Never Assessed Sex and Gender Information Value Date Recorded Sex Assigned at Not on file 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 Sex Male 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 Gender Identity Not on file Sexual Orientation Not on file documented as of this encounter Last Filed Vital Signs Vital Sign Reading Time Taken Comments Blood Pressure 132/80 04/25/2006 8:00 AM ANALYSIS INTERNSHIP Pulse - - Temperature 36.6 C (97.8 F) 04/25/2006 8:00 AM ANALYSIS INTERNSHIP Respiratory Rate - - Oxygen Saturation - - Inhaled Oxygen Concentration - - Weight 84.8 kg (187 lb) 04/25/2006 8:00 AM ANALYSIS INTERNSHIP Height - - Body Mass Index - - documented in this encounter Plan of Treatment Not on file documented as of this encounter Visit Diagnoses Not on filedocumented in this encounter Care Teams Core Driller Helper Relationship Specialty Start Date End Date Mey Ivey MD [address] [facility] [address] [place] [address] PCP - General Internal Medicine 08/13/16 12/09/21 documented as of this encounter
--- OUTSIDE RECORDS SUMMARY | 2024-10-21 11:10 | XMS_ITS | Encounter Summary ---
Author Organization [facility] Address 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 MEDICATIONS: Medication list current. CHIEF COMPLAINT Patient here for follow up depression. HISTORY: HISTORY: 401.1-HYPERTENSION ESSENTIAL BENIGN The patient denies chest pain, shortness of breath, dyspnea on exertion, pedal edema, or headache. 308.3-ACUTE REACTION TO STRESS much worse, empty nest syndrome 311-DEPRESSION The depression has worsened. The patient has symptoms of mood change, denies loss ofinterest in activities, denies an appetite change, has symptoms of feeling overwhelmed, has anxiety. HISTORY OF PRESENT ILLNESS: UPPER RESPIRATORY: The patient has no symptoms of chest congestion, has no symptoms of ears popping, symptoms include nasal congestion, symptoms include nasal discharge, symptoms include post nasal drainage, symptoms include shortness of breath, symptoms include sinus congestion. PHYSICAL EXAMINATION: CONSTITUTIONAL: GENERAL APPEARANCE: Healthy appearing patient in no distress. NECK/THYROID: Trachea midline. No thyroid enlargement, tenderness, or mass. No supraclavicular or cervical adenopathy. RESPIRATORY: Clear to auscultation and percussion. Normal respiratory effort. CARDIOVASCULAR: CARDIAC: Regular rhythm. No murmurs, rubs, or gallops. ARTERIAL: No aortic bruits. EDEMA/VARICOSITIES OF EXTREMITIES: No edema or varicosities. GASTROINTESTINAL: ABDOMEN: Soft, non-tender, without masses. Bowel sounds active. LIVER/SPLEEN/KIDNEY: No hepatosplenomegaly, tenderness or nodularity. Kidneys not palpable. ASSESSMENT/PLAN: 401.1-HYPERTENSION ESSENTIAL BENIGN ASSESSMENT: The blood pressure remains satisfactory. 477.9-RHINITIS ALLERGIC UNSPECIFIED ASSESSMENT: The patient's allergic rhinitis has worsened. MEDICATIONS: FLONASE NASAL SUSPENSION 50 MCG/ACT, 2 SPRAYS EACH NOSTRIL each day, 1 Dispensed, 11 Fills, status:NEW PRESCRIPTION, 04/25/2006. 308.3-ACUTE REACTION TO STRESS ASSESSMENT: worsening MEDICATIONS: ZOLOFT ORAL TABLET 50 MG, 1/2 tab each day for seven days then 1 tab each day thereafter, 30 Dispensed, 5 Fills, status: NEW PRESCRIPTION, 04/25/2006. 381.01-OTITIS MEDIA ACUTE SEROUS ASSESSMENT: Will not change medication, continue to monitor for complications. The patient's acute otitis media has worsened. MEDICATIONS: AUGMENTIN ORAL TABLET 875-125 MG, 1 Two Times A Day, 20 Dispensed, status: NEW PRESCRIPTION, 04/25/2006. 311-DEPRESSION ASSESSMENT: The patient's depression is worsening. Electronically Signed by: Taqueria Tripp MD on Wednesday, May 10, 2006 documented in this encounter Plan of Treatment Not on file documented as of this encounter Visit Diagnoses Not on filedocumented in this encounter Care Teams Roller Mechanic Relationship Specialty Start Date End Date Mey Ivey MD [address] [place] [address] PCP - General Internal Medicine 08/13/16 12/09/21 documented as of this encounter
--- OUTSIDE RECORDS SUMMARY | 2024-10-21 11:10 | XMS_ITS | Encounter Summary ---
Author Organization [facility] Address [address] [place] [address] Care Team Providers Care Religious Education Director Name Role Phone Mey Ivey MD Primary Care Provider [phone] Encounter Details Date Type Department Care Team (Late st Contact Info) Description 11/04/2001 Outpatient Historical [facility] Primary Care - [facility] [address] [place] [address] [address] [place] [address] Jose Naik MD [address] [facility] [address] [address] Social History Tobacco Use Types Packs/Day Years Used Date Smoking Tobacco: Never Assessed Sex and Gender Information Value Date Recorded Sex Assigned at Not on file Legal Sex Male 4:55 AM RIDING DOUBLE Gender Identity Not on file Sexual Orientation Not on file documented as of this encounter Plan of Treatment Not on file documented as of this encounter Visit Diagnoses Not on filedocumented in this encounter Care Teams Religious Education Director Relationship Specialty Start Date End Date Mey Ivey MD [address] [facility] [address] [place] [address] PCP - General Internal Medicine 08/13/16 12/09/21 documented as of this encounter
--- OUTSIDE RECORDS SUMMARY | 2024-10-21 11:10 | XMS_ITS | Encounter Summary ---
Author Organization [facility] Address [address] [place] [address] Care Team Providers Care Ground Service Equipment Mechanic Name Role Phone Mey Ivey MD Primary Care Provider [phone] Encounter Details Date Type Department Care Team (Late st Contact Info) Description 01/11/1999 Outpatient Historical [facility] Primary Care - [address] [place] [address] Clarence Baptiste MD NO ADDRESS ON FILE Social History Tobacco Use Types Packs/Day Years Used Date Smoking Tobacco: Never Assessed Sex and Gender Information Value Date Recorded Sex Assigned at Not on file 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
--- OUTSIDE RECORDS SUMMARY | 2024-10-21 11:10 | XMS_ITS | Encounter Summary ---
Author Organization [facility] Address [address] [place] [address] Care Team Providers Care Loft Worker Name Role Phone Mey Ivey MD Primary Care Provider [phone] Encounter Details Date Type Department Care Team (Late st Contact Info) Description 10/25/2005 Orders Only [facility] Primary Care - [address] [place] [address] Taqueria Tripp MD [address] [facility] [address] [place] [address] Social History Tobacco Use Types Packs/Day Years Used Date Smoking Tobacco: Never Assessed Sex and Gender Information Value Date Recorded Sex Assigned at Not on file 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 LAST VISIT: 08-26-05 PCP: KACIE. ALTERNATIVE PHONE NUMBER: [phone] WHO CALLED: Patient called. CURRENT ALLERGY LIST: NO KNOWN ALLERGIES PHARMACY NUMBER: [phone] SECTION 1: REQUESTED ACTION varghese 10/25/05 at 11:17 am: MEDICATION REQUEST: is requesting a script for Cialis ...this would be new script for patent / era DOCTOR`S RESPONSE: rigo 10/25/05 at 01:21 pm give 5 refills MEDICATIONS: Call in to Pharmacy CIALIS ORAL TABLET 20 MG, 1 PO QDAY PRN, 6 Dispensed, status: NEW PRESCRIPTION, 10/25/2005. FINAL ACTION: gordo 10/25/05 at 01:41 pm Spoke with patient 10/25/05 at 01:41 pm. Called pharmacy at 10/25/05 at 01:41 pm. lmor w/ pharmacy................./dania Electronically Signed by: Dania Burdick on Tuesday, October 25, 2005 documented in this encounter Plan of Treatment Not on file documented as of this encounter Visit Diagnoses Not on filedocumented in this encounter Care Teams Loft Worker Relationship Specialty Start Date End Date Mey Ivey MD [address] [facility] [address] [place] [address] PCP - General Internal Medicine 08/13/16 12/09/21 documented as of this encounter
--- OUTSIDE RECORDS SUMMARY | 2024-10-21 11:10 | XMS_ITS | Encounter Summary ---
Author Organization [facility] Address 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
--- OUTSIDE RECORDS SUMMARY | 2024-10-21 11:10 | XMS_ITS | Encounter Summary ---
Author Organization [facility] Address [address] [place] [address] Care Team Providers Care Stave Saw Operator Name Role Phone Mey Ivey MD Primary Care Provider [phone] Encounter Details Date Type Department Care Team (Late st Contact Info) Description 08/13/2004 Outpatient Historical 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 Gender Identity Not on file Sexual Orientation Not on file documented as of this encounter Last Filed Vital Signs Vital Sign Reading Time Taken Comments Blood Pressure 132/84 08/13/2004 4:15 PM CDT Pulse - - Temperature 36.4 C (97.5 F) 08/13/2004 4:15 PM CDT Respiratory Rate - - Oxygen Saturation - - Inhaled Oxygen Concentration - - Weight 82.6 kg (182 lb) 08/13/2004 4:15 PM CDT Height - - Body Mass Index - - documented in this encounter Plan of Treatment Not on file documented as of this encounter Visit Diagnoses Not on filedocumented in this encounter Care Teams Stave Saw Operator Relationship Specialty Start Date End Date Mey Ivey MD [address] [facility] [address] [place] [address] PCP - General Internal Medicine 08/13/16 12/09/21 documented as of this encounter
--- OUTSIDE RECORDS SUMMARY | 2024-10-21 11:10 | XMS_ITS | Encounter Summary ---
Author Organization [facility] Address [address] [place] [address] Care Team Providers Care Rivet Flunky Name Role Phone Mey Ivey MD Primary Care Provider [phone] Encounter Details Date Type Department Care Team (Late st Contact Info) Description 09/07/2004 Outpatient Historical [facility] Primary Care - [facility] [address] [place] [address] [address] [place] [address] Taqueria Tripp MD [address] [facility] [address] [place] [address] Social History Tobacco Use Types Packs/Day Years Used Date Smoking Tobacco: Never Assessed Sex and Gender Information Value Date Recorded Sex Assigned at Not on file 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
--- OUTSIDE RECORDS SUMMARY | 2024-10-21 11:10 | XMS_ITS | Encounter Summary ---
Author Organization [facility] Address [address] [place] [address] Care Team Providers Care Breadman Name Role Phone Mey Ivey MD Primary Care Provider [phone] Encounter Details Date Type Department Care Team (Late st Contact Info) Description 03/26/2007 Outpatient Historical [facility] Primary Care - [facility] [address] [place] [address] [address] [place] [address] Taqueria Tripp MD [address] [facility] [address] [place] [address] Social History Tobacco Use Types Packs/Day Years Used Date Smoking Tobacco: Never Assessed Sex and Gender Information Value Date Recorded Sex Assigned at Not on file 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 [address] [place] [address] PCP - General Internal Medicine 08/13/16 12/09/21 documented as of this encounter
--- OUTSIDE RECORDS SUMMARY | 2024-10-21 11:10 | XMS_ITS | Encounter Summary ---
Author Organization [facility] Address 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 LAST VISIT: 05-15-07 PCP: Qasim. ALTERNATIVE PHONE NUMBER: [phone] WHO CALLED: Patient called. CURRENT ALLERGY LIST: NO KNOWN ALLERGIES PHARMACY NUMBER: [phone] SECTION 1: REQUESTED ACTION mychal 05/28/07 at 03:43 pm: MEDICATION REQUEST: wants lamisil for toenail fungus prn...........................travis DOCTOR`S RESPONSE: rigo 05/28/07 at 04:16 pm MEDICATIONS: Call in to Pharmacy LAMISIL ORAL TABLET 250 MG, 1 tab each day for 12 weeks, 30 Dispensed, 2 Fills, status: NEW PRESCRIPTION, 05/28/2007. FINAL ACTION: toro 05/29/07 at 09:29 am Spoke with patient 05/29/07 at 09:29 am. Called pharmacy at 05/29/07 at 09:29 am. SAS Electronically Signed by: Magdalena Miller on Tuesday, May 29, 2007 documented in this encounter Plan of Treatment Not on file documented as of this encounter Visit Diagnoses Not on filedocumented in this encounter Care Teams Grant Writer Relationship Specialty Start Date End Date Mey Ivey MD [address] [facility] [address] [place] [address] PCP - General Internal Medicine 08/13/16 12/09/21 documented as of this encounter
--- OUTSIDE RECORDS SUMMARY | 2024-10-21 11:10 | XMS_ITS | Encounter Summary ---
Author Organization [facility] Address [address] [place] [address] Care Team Providers Care Senior Courtroom Clerk Name Role Phone Mey Ivey MD Primary Care Provider [phone] Encounter Details Date Type Department Care Team (Late st Contact Info) Description 04/20/2003 Outpatient Historical [facility] Primary Care - [facility] [address] [place] [address] [address] [place] [address] Taqueria Tripp MD [address] [facility] [address] [place] [address] Social History Tobacco Use Types Packs/Day Years Used Date Smoking Tobacco: Never Assessed Sex and Gender Information Value Date Recorded Sex Assigned at Not on file 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 [address] [place] [address] PCP - General Internal Medicine 08/13/16 12/09/21 documented as of this encounter
--- OUTSIDE RECORDS SUMMARY | 2024-10-21 11:10 | XMS_ITS | Encounter Summary ---
Author Organization [facility] Address 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
--- OUTSIDE RECORDS SUMMARY | 2024-10-21 11:10 | XMS_ITS | Encounter Summary ---
Author Organization [facility] Address [address] [place] [address] Care Team Providers Care Engine Installer Name Role Phone Mey Ivey MD Primary Care Provider [phone] Encounter Details Date Type Department Care Team (Late st Contact Info) Description 11/08/2005 Outpatient Historical [facility] Primary Care - [address] [place] [address] Taqueria Tripp MD [address] [facility] [address] [place] [address] Special Screening for Malignant Neoplasm of Prostate (Primary Dx) Social History Tobacco Use Types Packs/Day Years Used Date Smoking Tobacco: Never Assessed Sex and Gender Information Value Date Recorded Sex Assigned at Not on file 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 Gender Identity Not on file Sexual Orientation Not on file documented as of this encounter Plan of Treatment Not on file documented as of this encounter Procedures Procedure Name Priority Date/Time Associated Diagnosis Comments TSH Routine 11/08/2005 9:18 PM CDT PSA Routine 11/08/2005 9:18 PM CDT BASIC METABOLIC PANEL Routine 11/08/2005 9:18 PM CDT documented in this encounter Results * TSH (11/08/2005 9:18 PM CDT) TSH 1.95 0.27 - 4.20 uU/mL INTERFACE SYSTEM 11/08/2005 9:18 PM CDT us Taqueria Tripp MD CHEMISTRY ORDERABLES Final Resul t Performing Organization Address [facility] Phone Number INTERFACE SYSTEM Refer to clinic/hospital department * BASIC METABOLIC PANEL (11/08/2005 9:18 PM CDT) GLUCOSE 85 65 - 99 mg/dL INTERFACE SYSTEM CREATININE 1.0 0.5 - 1.3 mg/dL INTERFACE SYSTEM Comment: Reference range changed due to change of gender at 10:52:25. Normal Low changed from 0.4 to 0.5. Normal High changed from 1.2 to 1.3. Result flag not changed. CALCIUM 9.1 8.4 - 10.2 mg/dL INTERFACE SYSTEM BUN 20 6 - 20 mg/dL INTERFACE SYSTEM SODIUM 138 135 - 145 mmol/L INTERFACE SYSTEM POTASSIUM 4.7 3.5 - 4.9 mmol/L INTERFACE SYSTEM CHLORIDE 101 96 - 108 mmol/L INTERFACE SYSTEM CO2 26 22 - 30 mmol/L INTERFACE SYSTEM 11/08/2005 9:18 PM CDT us Taqueria Tripp MD CHEMISTRY ORDERABLES Final Resul t Performing Organization Address [facility] Phone Number INTERFACE SYSTEM Refer to clinic/hospital department * PSA (11/08/2005 9:18 PM CDT) PSA 1.8 0.0 - 4.0 ng/mL INTERFACE SYSTEM Comment: Performed on [employer] E170 System Reference range changed due to change of gender at 10:52:26. Normal High changed from not defined to 4.0. Result flag changed from not applied to within range. 11/08/2005 9:18 PM CDT us Taqueria Tripp MD CHEMISTRY ORDERABLES Final Resul t Performing Organization Address [facility] Co de Phone Number INTERFACE SYSTEM Refer to clinic/hospital department documented in this encounter Visit Diagnoses Diagnosis Special screening for malignant neoplasm of prostate- Primary documented in this encounter Care Teams Engine Installer Relationship Specialty Start Date End Date Mey Ivey MD [address] [place] [address] PCP - General Internal Medicine 08/13/16 12/09/21 documented as of this encounter
--- OUTSIDE RECORDS SUMMARY | 2024-10-21 11:10 | XMS_ITS | Encounter Summary ---
Author Organization [facility] Address [address] [place] [address] Care Team Providers Care Data Entry Machine Operator Name Role Phone Mey Ivey MD Primary Care Provider [phone] Encounter Details Date Type Department Care Team (Late st Contact Info) Description 08/21/2006 Orders Only [facility] Primary Care - [facility] [address] [place] [address] [address] [place] [address] Taqueria Tripp MD [address] [facility] [address] [place] [address] Social History Tobacco Use Types Packs/Day Years Used Date Smoking Tobacco: Never Assessed Sex and Gender Information Value Date Recorded Sex Assigned at Not on file 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
--- OUTSIDE RECORDS SUMMARY | 2024-10-21 11:10 | XMS_ITS | Clinical Summary ---
Author Organization [facility] Address [address] [facility] [address] [place] [address] Phone Care Team Providers Care Cycle Repairer Name Role Phone Nito Mistry MD Primary Care Provider [phone] Allergies No known active allergies Medications montelukast (SINGULAIR) 10 mg tablet Take 10 mg by mouth. 7 Active fluticasone (FLONASE) 50 mcg/actuation nasal spray 2 sprays. 3 Active albuterol HFA (PROVENTIL HFA,VENTOLIN HFA,PROAIR HFA) 90 mcg/actuation inhaler Inhale 2 puffs every 6 hours as needed. 8 Active atorvastatin (LIPITOR) 10 mg tablet Take 1 tablet (10 mg total) by mouth daily. 90 tablet 5 8 Active Additional Information Patient not taking.Reported on 01/30/2018 amLODIPine (NORVASC) 10 mg tabletIndication s:Essential hypertension TAKE 1 TABLET BY MOUTH ONCE DAILY 30 tablet 9 Active Active Problems No known active problems Immunizations Immunization Administration Dates Next Due Influenza, Quadrivalent, Spl it, Preservative Free, Intramuscular 01/05/2018 Influenza, Trivalent, IM (MDV) 03/30/1999 Influenza, Unspecified 11/24/2016(Deferred: Alanis ent Refused) Tdap 04/14/2017,02/15/2010 Medical History Medical History Date Comments Hypertension Hyperlipidemia GERD (gastroesophageal reflux disease) Family History Medical History Relation Name Comments Cancer Mother Relation Name Status Comments Father Mother Social History Tobacco Use Types Packs/Day Years Used Date Smoking Tobacco: Never Smokeless Tobacco: Never Alcohol Use Standard Drinks/Week Comments No 0 (1 standard drink = 0.6 oz pur e alcohol) PHQ-2 Answer Date Recorded PHQ-2 Score 0 10/14/2018 Personal Safety Answer Date Recorded Getting School Help Needed Not on file 05/08 Sex and Gender Information Value Date Recorded Sex Assigned at Not on file Legal Sex Male 9:23 AM 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 FIREWALL ENGINEER Gender Identity Not on file Sexual Orientation Not on file Obstetrics History Last Filed Vital Signs Vital Sign Reading Time Taken Comments Blood Pressure 126/81 01/30/2018 11:24 AM NETWORK FIREWALL ENGINEER Pulse 87 01/30/2018 11:24 AM NETWORK FIREWALL ENGINEER Temperature 36.2 C (97.1 F) 01/30/2018 11:24 AM NETWORK FIREWALL ENGINEER Respiratory Rate 17 01/30/2018 11:24 AM NETWORK FIREWALL ENGINEER Oxygen Saturation 98% 01/30/2018 11:24 AM NETWORK FIREWALL ENGINEER Inhaled Oxygen Concentration - - Weight 82 kg (180 lb 12.8 oz) 01/30/2018 11:24 A M NETWORK FIREWALL ENGINEER Height 175.3 cm (5' 9) 01/30/2018 11:24 AM NETWORK FIREWALL ENGINEER Body Mass Index 26.7 01/30/2018 11:24 AM NETWORK FIREWALL ENGINEER Plan of Treatment Not on file Insurance [employer] MEDICARE PPO [employer] MEDICARE PPO Care Teams Cycle Repairer Relationship Specialty Start Date End Date Nito Mistry MD [facility] [address] [address] PCP - General Family Medicine 11/24/23
--- OUTSIDE RECORDS SUMMARY | 2024-10-21 11:10 | XMS_ITS | Encounter Summary ---
Author Organization [facility] Address [address] [place] [address] Care Team Providers Care Invoice Classification Clerk Name Role Phone Mey Ivey MD Primary Care Provider [phone] Encounter Details Date Type Department Care Team (Late st Contact Info) Description 05/15/2007 Outpatient Historical [facility] Primary Care - [address] [place] [address] Taqueria Tripp MD [address] [facility] [address] [place] [address] Social History Tobacco Use Types Packs/Day Years Used Date Smoking Tobacco: Never Assessed Sex and Gender Information Value Date Recorded Sex Assigned at Not on file Legal Sex Male 4:55 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 Gender Identity Not on file Sexual Orientation Not on file documented as of this encounter Last Filed Vital Signs Vital Sign Reading Time Taken Comments Blood Pressure 142/92 05/15/2007 9:15 AM CDT Pulse - - Temperature 36.7 C (98.1 F) 05/15/2007 9:15 AM CDT Respiratory Rate - - Oxygen Saturation - - Inhaled Oxygen Concentration - - Weight 87.5 kg (193 lb) 05/15/2007 9:15 AM CDT Height - - Body Mass Index - - documented in this encounter Plan of Treatment Not on file documented as of this encounter Visit Diagnoses Not on filedocumented in this encounter Care Teams Invoice Classification Clerk Relationship Specialty Start Date End Date Mey Ivey MD [address] [facility] [address] [place] [address] PCP - General Internal Medicine 08/13/16 12/09/21 documented as of this encounter
--- OUTSIDE RECORDS SUMMARY | 2024-10-21 11:10 | XMS_ITS | Encounter Summary ---
Author Organization [facility] Address [address] [place] [address] Care Team Providers Care Roofer Helper Vinyl Coating Name Role Phone Mey Ivey MD Primary Care Provider [phone] Encounter Details Date Type Department Care Team (Late st Contact Info) Description 08/26/2005 Orders Only [facility] Primary Care - [address] [place] [address] Taqueria Tripp MD [address] [facility] [address] [place] [address] Social History Tobacco Use Types Packs/Day Years Used Date Smoking Tobacco: Never Assessed Sex and Gender Information Value Date Recorded Sex Assigned at Not on file Legal Sex Male 4:55 AM BILINGUAL RECEPTIONIST Gender Identity Not on file Sexual Orientation Not on file documented as of this encounter Progress Notes * Taqueria Tripp MD - 12/04/2007 9:34 AM CDT BLOOD PRESSURE: 150/90 Right Arm Sitting TEMPERATURE: 97.5??f Oral WEIGHT: 179lbs NURSE NAME: Krissy Wadsworth A ALLERGIES: No known drug allergies. MEDICATIONS: Medications may have changed. to review medications. CHIEF COMPLAINT Patient here for follow up hypertension. AND DISCUSS HERNIATED DISK IN THE BACK HISTORY: HISTORY: 401.1-HYPERTENSION ESSENTIAL BENIGN The patient denies chest pain, shortness of breath, dyspnea on exertion, pedal edema, or headache. HISTORY OF PRESENT ILLNESS: PHYSICAL EXAMINATION: CONSTITUTIONAL: GENERAL APPEARANCE: Healthy appearing patient in no distress. NECK/THYROID: Trachea midline. No thyroid enlargement, tenderness, or mass. No supraclavicular or cervical adenopathy. RESPIRATORY: Clear to auscultation and percussion. Normal respiratory effort. CARDIOVASCULAR: CARDIAC: Regular rhythm. No murmurs, rubs, or gallops. ARTERIAL: Aortic pulses of normal amplitude with no bruits. EDEMA/VARICOSITIES OF EXTREMITIES: No edema or varicosities. GASTROINTESTINAL: ABDOMEN: Soft, non-tender, without masses. Bowel sounds active. LIVER/SPLEEN/KIDNEY: No hepatosplenomegaly, tenderness or nodularity. Kidneys not palpable. GENITOURINARY: PROSTATE: Symmetrical and smooth with no nodularity or tenderness. ASSESSMENT/PLAN: 401.1-HYPERTENSION ESSENTIAL BENIGN ASSESSMENT: The blood pressure remains satisfactory. Will not change medication, continue to monitor for complications. MEDICATIONS: NORVASC ORAL TABLET 5 MG, 1 Every Day, 30 Dispensed, 11 Fills, status: NEW PRESCRIPTION, 08/26/2005. V76.51-SCREEN FOR CA OF COLON LAB ORDERS: Order number: [id number] Test Ordered: COLONOSCOPY V76.44-SCREEN FOR CA OF PROSTATE SPECIALTY REFERRAL: NEUROSURGERY Dr. Darin Castañeda ph: [phone] fax: [phone]. RETURN VISIT : Patient instructed to return in 2 months. Electronically Signed by: Taqueria Tripp MD on Thursday, September 29, 2005 documented in this encounter Plan of Treatment Not on file documented as of this encounter Visit Diagnoses Not on filedocumented in this encounter Care Teams Roofer Helper Vinyl Coating Relationship Specialty Start Date End Date Mey Ivey MD [address] [place] [address] PCP - General Internal Medicine 08/13/16 12/09/21 documented as of this encounter
--- OUTSIDE RECORDS SUMMARY | 2024-10-21 11:10 | XMS_ITS | Encounter Summary ---
Author Organization [facility] Address [address] [place] [address] Care Team Providers Care Granulating Blender Name Role Phone Mey Ivey MD Primary Care Provider [phone] Encounter Details Date Type Department Care Team (Late st Contact Info) Description 05/15/[address] 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 [address] D.O.B: 1955 SSN: [id number] Parent/Guardian if applicable: Patient Insurance: [employer] PPO ID#: [id number] Group#: ORDER(S) #: [id number] echo/complete doppler BEST TO CALL [phone] BEST TIME TO CALL: ANYTIME. MAY WE LEAVE MESSAGE AT THAT NUMBER: YES, LEAVE MESSAGE. TEST PRIORITY: 2 - 7 DAYS. SPECIAL SCHEDULING INSTRUCTIONS: [facility] ORDERING PHYSICIAN: TAQUERIA TRIPP MD OFFICE CENTRAL SUPPLY TECH & PHONE: ambar [phone] ORDER PRINTED BY: MAY 18, 2007 Will Garcia L 03:03 p FOR SCHEDULING USE ONLY: FIRST ATTEMPT Date:MAY 19, 2007 Will Garcia L 10:05 a Left message on [email or web address] MAY 20, 2007 Krissy Portillo M 04:34 p [facility]. APPOINTMENT DATE : 05/28/2007 ( 01:15) The appointment was scheduled by Krissy Portillo M at [phone] MAY 20, 2007 Krissy Portillo M 04:34 p Pre-authorization number: [id number] nn FINAL ACTION Spoke with patient. * Taqueria Tripp MD - 07/30/2007 7:23 PM CDT TEMPERATURE: 98.1??f Oral BLOOD PRESSURE: 142/92 Right Arm Sitting WEIGHT: 193lbs NURSE NAME: Dionne Valerio ALLERGIES: No known drug allergies. TOBACCO USE Patient does not currently use tobacco. MEDICATIONS: Medication list current. CHIEF COMPLAINT yearly PE HISTORY: HISTORY: 401.1-HYPERTENSION ESSENTIAL BENIGN The patient denies chest pain, shortness of breath, dyspnea on exertion, pedal edema, or headache. ROS: GENERAL: Normal activity and energy level, no change in appetite. No major weight gain or loss. No malaise, chills, fever, diaphoresis.. ENT: No hearing loss, epistaxis, hoarseness or dysphagia. No sinus congestion.. ENDOCRINE: No heat or cold intolerance, no excessive thirst.. CARDIAC: No chest pain, palpitations, orthopnea, dyspnea on exertion, or paroxysmal nocturnal dyspnea.. RESPIRATORY: No dyspnea, cough, hemoptysis or wheezing.. : No dysuria or hematuria.. GI: No abdominal pain, nausea, vomiting, diarrhea, constipation, melena, or hematochezia.. PAST MEDICAL HISTORY: MEDICAL: Hypertension. SURGICAL: antral windows, deviated septum CHILDHOOD DISEASES: Normal childhood diseases. CURRENT MEDICATIONS: flonase FAMILY HISTORY: MOTHER: Illnesses: Ischemic heart disease, hypertension, hypercholesterolemia. SOCIAL HISTORY: MARITAL HISTORY: . TOBACCO USE: Has no significant smoking history. OTHER HEALTH RISKS: PHYSICAL EXAMINATION: CONSTITUTIONAL: GENERAL APPEARANCE: Healthy appearing patient in no distress. NECK/THYROID: Trachea midline. No thyroid enlargement, tenderness, or mass. No supraclavicular or cervical adenopathy. RESPIRATORY: Clear to auscultation and percussion. Normal respiratory effort. CARDIOVASCULAR: CARDIAC: GRADE II/ SYSTOLIC MURMUR. ARTERIAL: No aortic bruits. EDEMA/VARICOSITIES OF EXTREMITIES: No edema or varicosities. GASTROINTESTINAL: ABDOMEN: Soft, non-tender, without masses. Bowel sounds active. LIVER/SPLEEN/KIDNEY: No hepatosplenomegaly, tenderness or nodularity. Kidneys not palpable. GENITOURINARY: PROSTATE: Symmetrical and smooth with no nodularity or tenderness. ASSESSMENT/PLAN: 401.1-HYPERTENSION ESSENTIAL BENIGN MEDICATIONS: LISINOPRIL ORAL TABLET 5 MG, 1 Every Day, 30 Dispensed, 11 Fills, status: NEW PRESCRIPTION, 05/15/2007. V70.0-ROUTINE GENERAL MEDICAL EXAMINATION LAB ORDERS: Order number: [id number] Test Ordered: COMPREHENSIVE METABOLIC PANEL & GFR 1112 Order number: [id number] Test Ordered: TSH (REFLEX FREE T4/FREE T3) 1727 Order number: [id number] Test Ordered: CBC W/ DIFFERENTIAL 3150 Order number: [id number] Test Ordered: LIPID PANEL 1078 Order number: [id number] Test Ordered: URINALYSIS WITH REFLEX CULTURE 2221 Order number: [id number] Test Ordered: PSA, TOTAL 1002 785.2-CARDIAC MURMURS (UNDIAGNOSED) ASSESSMENT: The functional heart murmur is stable. Will not change medication, continue to monitor for complications. LAB ORDERS: Order number: [id number] Test Ordered: ECHO/COMPLETE DOPPLER HEALTH MAINTENANCE: LAST PROSTATE EXAM: 2005. LAST DATE PSA DONE: 2005. DISCUSSED SMOKING: no. LAST TD: unknown SEXUAL ACTIVITY DISCUSSED: yes. SUBSTANCE ABUSE DISCUSSED: no. INJURY PREVENTION DISCUSSED: yes. DIET AND EXERCISE DISCUSSED: yes. ADVANCED DIRECTIVES DISCUSSED: no. LAST DATE COLONOSCOPY: 2005. LAST FLU VACCINE:no LAST PNEUMOCOCCAL:no RETURN VISIT : Patient instructed to return in 6 months. Electronically Signed by: Taqueria Tripp MD on Thursday, July 05, 2007 documented in this encounter Plan of Treatment Not on file documented as of this encounter Visit Diagnoses Not on filedocumented in this encounter Care Teams Granulating Blender Relationship Specialty Start Date End Date Mey Ivey MD [address] [facility] [address] [place] [address] PCP - General Internal Medicine 08/13/16 12/09/21 documented as of this encounter
--- OUTSIDE RECORDS SUMMARY | 2024-10-21 11:10 | XMS_ITS | Encounter Summary ---
Author Organization [facility] Address [address] [place] [address] Care Team Providers Care Family Reunification Specialist Name Role Phone Mey Ivey MD Primary Care Provider [phone] Encounter Details Date Type Department Care Team (Late st Contact Info) Description 08/26/2005 Outpatient Historical [facility] Primary Care - [address] [place] [address] Taqueria Tripp MD [address] [facility] [address] [place] [address] Social History Tobacco Use Types Packs/Day Years Used Date Smoking Tobacco: Never Assessed Sex and Gender Information Value Date Recorded Sex Assigned at Not on file Legal Sex Male 4:55 AM HAT AND CAP SEWER Gender Identity Not on file Sexual Orientation Not on file documented as of this encounter Last Filed Vital Signs Vital Sign Reading Time Taken Comments Blood Pressure 150/90 08/26/2005 9:45 AM CDT Pulse - - Temperature 36.4 C (97.5 F) 08/26/2005 9:45 AM CDT Respiratory Rate - - Oxygen Saturation - - Inhaled Oxygen Concentration - - Weight 81.2 kg (179 lb) 08/26/2005 9:45 AM CDT Height - - Body Mass Index - - documented in this encounter Plan of Treatment Not on file documented as of this encounter Visit Diagnoses Not on filedocumented in this encounter Care Teams Family Reunification Specialist Relationship Specialty Start Date End Date Mey Ivey MD [address] [facility] [address] [place] [address] PCP - General Internal Medicine 08/13/16 12/09/21 documented as of this encounter
--- OUTSIDE RECORDS SUMMARY | 2024-10-21 11:10 | XMS_ITS | Encounter Summary ---
Author Organization [facility] Address [address] [place] [address] Care Team Providers Care Building Guard Deputy Sheriff Name Role Phone Mey Ivey MD Primary Care Provider [phone] Encounter Details Date Type Department Care Team (Late st Contact Info) Description 03/26/2007 Outpatient Historical [facility] Primary Care - [facility] [address] [facility] [address] [place] [address] Mey Ivey MD [address] [facility] [address] [place] [address] Social History Tobacco Use Types Packs/Day Years Used Date Smoking Tobacco: Never Assessed Sex and Gender Information Value Date Recorded Sex Assigned at Not on file Legal Sex Male 4:55 AM 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
== END 2024-10-21 11:07 | disposition home or self-care (01) ==
LOC: ANHGOSHLAB 11:07
PROVIDERS: PCP Family Medicine; Visit Provider Otolaryngology
DX: K11.7 Disturbances of salivary secretion (principal); K14.6 Glossodynia
CPT/HCPCS: 86235